=== PATIENT | male | born 1960 | race Caucasian/White ===

== ENCOUNTER → 2020-09-26 | Outpatient (CLI) | payer BC ==
--- NOTE | 2020-09-28 12:11 | MR ---
EXAMINATION TYPE: MR shoulder LT wo con DATE OF EXAM: 09/26/2020 COMPARISON: Outside radiograph 09/19/2020 HISTORY: 60-year-old male Left shoulder pain TECHNIQUE: Multiplanar, multisequence imaging of the left shoulder is performed without contrast. FINDINGS: The intracapsular portion of the long head biceps tendon appears diminutive. There seems to be a spli t tear that extends into the upper bicipital groove but otherwise, the extracapsular portion of long biceps tendon is intact. Mild to moderate tenosynovial fluid here. Areas of partial thickness tearing of the subscapularis tendon though the majority of the subscapular is tendon appears intact. Mild degenerative change at the acromial clavicular joint with some marginal spurring and capsular hy pertrophy and small joint effusion. There is narrowing of the subacromial space with a full-thickness tear involving the entire surface a nd it is tendon with extension into the anterior fibers of the infraspinatus tendon. Mild fluid withi n the subacromial/subdeltoid bursa. The stump is retracted by 5 to 6 cm just proximal to the glenoid. Only mild fatty infiltration of both supraspinatus and infraspinatus muscle bellies with overall pres erved. Muscle bulk. There is mild degenerative change at the glenohumeral joint characterized by marginal spurring, and a reas of mild irregular cartilage thinning especially along the superior aspect of the humeral head. S mall joint effusion. Degenerative signal in the labrum but without discrete labral tear given nonarthrographic technique. No Hill-Sachs deformity or os acromiale. Patchy red marrow is present and can be seen in the setting of anemia, obesity, smoking, chronic disease. IMPRESSION: 1. Full-thickness tear of the entire supraspinatus tendon. The tear extends into the anterior fibers of the infraspinatus tendon. Some retraction by up to 5 to 6 cm just proximal to the glenoid. Only mi ld fatty infiltration of both supraspinatus and infraspinatus tendons at this time. 2. Areas of partial tearing of the subscapularis tendon. The majority of the subscapularis tendon rem ains intact. 3. Partial tear of the intracapsular portion of the long biceps tendon. A split tear extends into the uppermost bicipital groove. Associated mild tenosynovitis. 4. Mild overall GH joint OA.
== END | disposition home or self-care (01) ==
LOC: RADMRIMAIN 12:22
PROVIDERS: ATTEND Orthopaedic Surgery
DX: M19.012 Primary osteoarthritis, left shoulder (principal); M75.122 Complete rotator cuff tear or rupture of left shoulder, not specified as traumatic; M65.812 Other synovitis and tenosynovitis, left shoulder